=== PATIENT | female | born 1995 | race Caucasian/White ===

== ENCOUNTER 2018-10-03 07:13 | Inpatient (IN) | payer BC ==
[~2018-10-03] VITALS: Ht 160 cm; Wt 77.7 kg
[2018-10-03 07:00] VITALS: BP 142/92
[2018-10-03] MEDS ORDERED: OXYTOCIN 30U/ 0.9% NaCL 500ML 500 ML IV ONE (07:40)
[2018-10-03] MEDS ORDERED: OXYTOCIN 30U/ 0.9% NaCL 500ML 500 ML IV PRN (07:40)
[2018-10-03] MEDS ORDERED: PLEASE ENTER ALLERGIES MC SCH (08:00)
[2018-10-03] MEDS ORDERED: ONDANSETRON 2MG/ML, 2ML IVPush PRN ×3 (08:00→22:30)
[2018-10-03] MEDS ORDERED: FENTANYL PF 100 MCG/2ML IV PRN ×2 (08:00→19:30)
[2018-10-03] MEDS ORDERED: CALCIUM CARBONATE 500 MG TAB.CHEW PO PRN (08:00)
[2018-10-03 08:05] LABS: BASOPHILS # (AUTO) 0.04 x10^3/uL (0-0.3); BASOPHILS % (AUTO) 0 % (0-1); EOSINOPHILS # (AUTO) 0.08 x10^3/uL (0-0.8); EOSINOPHILS % (AUTO) 1 % (1-7); LYMPHOCYTES # (AUTO) 2.87 x10^3/uL (1-6.1); LYMPHOCYTES % (AUTO) 25 % (22-44); MD NO; MEAN CORPUSCULAR HEMOGLOBIN 31.3 pg (27.0-34.8); MEAN CORPUSCULAR HGB CONC 33.8 g/dL (32.4-35.8); MEAN CORPUSCULAR VOLUME 92.4 fL (80-100); MEAN PLATELET VOLUME 9.2 fL (7.4-10.4); MONOCYTES # (AUTO) 0.96 x10^3/uL (0-1.4); MONOCYTES % (AUTO) 8 % (2-9); NEUTROPHILS # (AUTO) 7.46 x10^3/uL (1.8-8.0); NEUTROPHILS % (AUTO) 65 % (42-75); PLATELET COUNT 246 x10^3/uL (130-400); RED BLOOD COUNT 4.14 x10^6/uL (3.82-5.3); RED CELL DISTRIBUTION WIDTH 14.1 % (9.6-15.2)
[2018-10-03] MEDS ORDERED: OXYTOCIN 30U/ 0.9% NaCL 500ML 500 ML ONE (08:05)
[2018-10-03] MEDS ORDERED: D5%-LACTATED RINGERS 1,000 ML IV SCH (08:10)
[2018-10-03] MEDS: LACTATED RINGERS 1,000 ML IV SCH ×4 (08:20→21:25)
[2018-10-03] MEDS ORDERED: FENTANYL PF 100 MCG/2ML ONE ×5 (13:35→20:04)
[2018-10-03] MEDS: FENTANYL PF 100 MCG/2ML IVPush PRN ×2 (13:36→14:54)
[2018-10-03] MEDS ORDERED: NEWBORN KIT ONE (13:45)
[2018-10-03] MEDS ORDERED: FENTANYL/BUPIV./NS/PF 250 ML EPIDCONT SCH ×2 (15:01→15:38)
[2018-10-03] MEDS ORDERED: FENTANYL PF 500 MCG, BUPIVACAINE/PF 0.5%, 30ML 62.5 ML in SODIUM CHLORIDE 0.9% 177.5 ML EPIDCONT SCH (15:30)
[2018-10-03] MEDS ORDERED: LACTATED RINGERS 1,000 ML IV SCH (15:38)
[2018-10-03] MEDS ORDERED: BUPIVACAINE 0.25% ONE (15:42)
[2018-10-03] MEDS ORDERED: LACTATED RINGERS 1,000 ML IVBOLUS PRN (16:00)
[2018-10-03] MEDS ORDERED: EPHEDRINE 50 MG/ML, 1ML IVPush PRN ×3 (16:00→22:30)
[2018-10-03] MEDS ORDERED: NALOXONE 0.4 MG/ML, 1ML IVPush PRN (16:00)
[2018-10-03] MEDS ORDERED: TERBUTALINE 1 MG/ML, 1ML ONE (18:07)
[2018-10-03] MEDS ORDERED: PHENYLEPHRINE 10 MG/ML ONE (18:22)
[2018-10-03] MEDS ORDERED: SODIUM BICARBONATE 1 MEQ/ML, 50ML VIAL ONE (18:22)
[2018-10-03] MEDS ORDERED: ONDANSETRON 2MG/ML, 2ML ONE (18:22)
[2018-10-03] MEDS ORDERED: KETOROLAC 30 MG/1 ML ONE (18:22)
[2018-10-03] MEDS ORDERED: OXYTOCIN 10 UNITS/ML, 1ML ONE (18:22)
[2018-10-03] MEDS ORDERED: DEXAMETHASONE 4 MG/ML, 1ML ONE (18:22)
[2018-10-03] MEDS ORDERED: CEFAZOLIN 1,000 MG ONE (18:22)
[2018-10-03] MEDS ORDERED: EPHEDRINE 50 MG/ML, 1ML ONE (18:22)
[2018-10-03] MEDS ORDERED: HYDROmorphone 2 MG/ML, 1ML ONE ×2 (18:30→19:28)
[2018-10-03] MEDS ORDERED: morphine SULFATE/PF 1 MG/ML, 10ML ONE (18:57)
[2018-10-03] MEDS ORDERED: MISOPROSTOL 200 MCG TABLET PR PRN (19:00)
[2018-10-03] MEDS ORDERED: morphine SULFATE 10 MG/ML, 1ML IVPush PRN (19:00)
[2018-10-03] MEDS ORDERED: ONDANSETRON 2MG/ML, 2ML IV PRN (19:00)
[2018-10-03] MEDS ORDERED: LABETALOL 5MG/ML, 20ML IV PRN (19:30)
[2018-10-03] MEDS ORDERED: hydrALAzine 20 MG/ML, 1ML IV PRN (19:30)
[2018-10-03] MEDS ORDERED: OXYcodone 5 MG/5 ML ORAL.SOL UDC PO PRN (19:30)
[2018-10-03] MEDS ORDERED: HYDROcodone/APAP 7.5-325MG/15ML UDC PO PRN (19:30)
[2018-10-03] MEDS ORDERED: PROMETHAZINE 25 MG/ML, 1ML IV PRN (19:30)
[2018-10-03] MEDS ORDERED: MEPERIDINE/PF 25MG/0.5ML IVPush PRN (19:30)
[2018-10-03] MEDS ORDERED: ALBUTEROL SULFATE 2.5 MG/3 ML NPPB PRN (19:30)
[2018-10-03] MEDS ORDERED: HYDROmorphone 2 MG/ML, 1ML IVPush PRN (19:30)
[2018-10-03] MEDS ORDERED: HYDROcodone/APAP 7.5-325MG/15ML UDC ONE (20:04)
[2018-10-03 21:25] VITALS: BP 132/86
[2018-10-03] MEDS: OXYTOCIN 30U/ 0.9% NaCL 500ML 500 ML IV SCH (21:25)
[2018-10-03] MEDS ORDERED: NO SEDATIVES, TRANQUILIZERS OR ANTIEMETICS XX SCH (22:30)
[2018-10-03] MEDS ORDERED: HYDROmorphone 1 MG/ML, 1ML IVPush PRN (22:30)
[2018-10-03] MEDS ORDERED: NALOXONE 0.4 MG/ML, 1ML IV PRN (22:30)
[2018-10-03] MEDS ORDERED: DIPHENHYDRAMINE 50 MG/ML, 1ML IV PRN (22:30)
[2018-10-03] MEDS ORDERED: FENTANYL PF 100 MCG/2ML IVPush PRN (22:30)
[2018-10-03] MEDS: OXYcodone/APAP 5/325MG TABLET PO PRN (22:39)
[2018-10-04 00:03] VITALS: BP 124/79
[2018-10-04] MEDS: KETOROLAC 30 MG/1 ML IV PRN ×4 (01:00→16:17)
[2018-10-04] MEDS: LACTATED RINGERS 1,000 ML IV SCH ×2 (02:52→04:52)
[2018-10-04 04:15] VITALS: BP 110/75
[2018-10-04] MEDS: OXYcodone/APAP 5/325MG TABLET PO PRN ×3 (04:49→20:00)
[2018-10-04] MEDS: OXYTOCIN 30U/ 0.9% NaCL 500ML 500 ML IV SCH (04:52)
[2018-10-04 05:34] LABS: MEAN CORPUSCULAR HEMOGLOBIN 31.9 pg (27.0-34.8); MEAN CORPUSCULAR HGB CONC 34.4 g/dL (32.4-35.8); MEAN CORPUSCULAR VOLUME 92.8 fL (80-100); MEAN PLATELET VOLUME 9.5 fL (7.4-10.4); PLATELET COUNT 213 x10^3/uL (130-400); RED BLOOD COUNT 3.45 x10^6/uL (3.82-5.3); RED CELL DISTRIBUTION WIDTH 14.1 % (9.6-15.2)
[2018-10-04 06:06] LABS: BASOPHILS # (AUTO) 0.06 x10^3/uL (0-0.3); BASOPHILS % (AUTO) 0 % (0-1); EOSINOPHILS % (AUTO) 0 % (1-7); LYMPHOCYTES # (AUTO) 1.36 x10^3/uL (1-6.1); LYMPHOCYTES % (AUTO) 7 % (22-44); MD SCAN; MONOCYTES # (AUTO) 1.18 x10^3/uL (0-1.4); MONOCYTES % (AUTO) 6 % (2-9); NEUTROPHILS # (AUTO) 17.74 x10^3/uL (1.8-8.0); NEUTROPHILS % (AUTO) 87 % (42-75)
[2018-10-04 07:23] VITALS: BP 113/65
[2018-10-04] MEDS ORDERED: HEPATITIS B PED VACCINE/PF 5MCG/0.5ML IM-VACC ONE (08:31)
[2018-10-04] MEDS: DOCUSATE 100 MG CAPSULE PO PRN ×2 (10:11→20:00)
[2018-10-04] MEDS: PRENATAL VIT/IRON/FA 1 EACH TABLET PO SCH (10:11)
[2018-10-04 12:23] VITALS: BP 111/76
[2018-10-04] MEDS ORDERED: RHOGAM FROM BLOOD BANK 1 NOTE EA IM/IV ONE (19:30)
[2018-10-04 20:00] VITALS: BP 126/87
[2018-10-04] MEDS: IBUPROFEN 600 MG TABLET PO PRN (22:01)
[2018-10-05] MEDS: OXYcodone/APAP 5/325MG TABLET PO PRN ×6 (01:03→21:42)
[2018-10-05] MEDS: IBUPROFEN 600 MG TABLET PO PRN ×3 (05:04→21:42)
[2018-10-05 08:00] VITALS: BP 122/88
[2018-10-05] MEDS: DOCUSATE 100 MG CAPSULE PO PRN ×2 (09:22→21:42)
[2018-10-05] MEDS: PRENATAL VIT/IRON/FA 1 EACH TABLET PO SCH (09:22)
[2018-10-05 20:00] VITALS: BP 125/85
[2018-10-06] MEDS: OXYcodone/APAP 5/325MG TABLET PO PRN ×3 (02:20→12:56)
[2018-10-06] MEDS: IBUPROFEN 600 MG TABLET PO PRN ×3 (03:37→16:32)
[2018-10-06 07:30] VITALS: BP 121/81
[2018-10-06] MEDS: DOCUSATE 100 MG CAPSULE PO PRN (07:46)
[2018-10-06] MEDS: PRENATAL VIT/IRON/FA 1 EACH TABLET PO SCH (09:00)
[2018-10-06] MEDS ORDERED: IBUP-1222 PO (15:00)
[2018-10-06] MEDS ORDERED: OXYC-302 PO (15:01)
== END 2018-10-06 18:05 | disposition home or self-care (01) | DRG 788 ==
LOC: LDIP 07:13 → 2NW 20:47
PROVIDERS: ADMIT Obstetrics & Gynecology; ATTEND Obstetrics & Gynecology
PROC: 10D00Z1 Extraction of Products of Conception, Low, Open Approach (ICD-10-PCS; principal; 2018-10-03)
PROC: 30233S1 Transfusion of Nonautologous Globulin into Peripheral Vein, Percutaneous Approach (ICD-10-PCS; 2018-10-04)
DX: O69.81X0 Labor and delivery complicated by cord around neck, without compression, not applicable or unspecified (principal); O99.52 Diseases of the respiratory system complicating childbirth; J45.909 Unspecified asthma, uncomplicated; O76 Abnormality in fetal heart rate and rhythm complicating labor and delivery; Z37.0 Single live birth; Z3A.39 39 weeks gestation of pregnancy
CPT/HCPCS: 36415; 74018; J2790; 82803; 85025; 85461; 86850; 86900; 88307; G0378; J0690; J1100; J1170; J1885; J2274; J2405; J3010; J3490; J2370; J2590; J7050; J7120